=== PATIENT | female | born 1930 | race Caucasian/White ===

== ENCOUNTER 2017-04-24 11:09 | Emergency (ER) | payer MEDICARE ==
[~2017-04-24] VITALS: Ht 162.6 cm; Wt 88.9 kg
[~2017-04-24 11:09] MED LIST: AMLODIPINE BESYL5 MG PO; ARICEPT PO; ARICEPT5 MG PO; ASPIRIN81 MG PO; FUROSEMIDE40 MG PO; LISINOPRIL10 MG PO; LISINOPRIL5 MG PO; LORAZEPAM0.5 MG PO; MELOXICAM15 MG PO; METOPROLOL TART50 MG PO; NASONEX17 GM INH; NATURAL TEARS OU; OMEPRAZOLE40 MG; OXYBUTYNIN CHLO10 MG PO; SIMVASTATIN40 MG PO; SPIRONOLACTONE25 MG PO; TYLENOL325 MG PO; ZOLOFT PO
[2017-04-24] MEDS ORDERED: HYDROCODONE/APAP 5MG-325MG TAB PO ONE (13:00)
[2017-04-24 13:02] VITALS: BP 139/84
[2017-04-24] MEDS ORDERED: MORPHINE SULFATE 2 MG/ML SYR IM ONE (13:30)
== END 2017-04-24 14:30 ==
LOC: ER 11:17
DX: S01.81XA Laceration without foreign body of other part of head, initial encounter (principal); W06.XXXA Fall from bed, initial encounter; Y92.129 Unspecified place in nursing home as the place of occurrence of the external cause
CPT/HCPCS: 12011; 99284; J2270